=== PATIENT | female | born 1955 | race Caucasian/White ===

== ENCOUNTER 2020-08-15 17:16 | Emergency (ER) | payer BC ==
[2020-08-16 10:12] LABS: SARS-CoV-2 NAA Not Detected (Not Detected)
== END 2020-08-15 18:32 | disposition home or self-care (01) ==
LOC: JVIRT 17:16
DX: Z11.52 Encounter for screening for COVID-19 (principal)
CPT/HCPCS: C9803; G2251-GT; U0003; U0005

== ENCOUNTER 2020-11-03 08:33 | Day surgery (SDC) | payer BC ==
[2020-10-31 19:18] VITALS: BMI 28.7
[2020-11-03 10:56] VITALS: TEMP 98.2
[2020-11-03 11:18] VITALS: BP 136/68; PULSE 66
== END 2020-11-03 11:30 | disposition home or self-care (01) ==
LOC: FASU-ENDO 08:33
PROVIDERS: ATTEND Internal Medicine Gastroenterology
PROC: 0DB98ZX Excision of Duodenum, Via Natural or Artificial Opening Endoscopic, Diagnostic (ICD-10-PCS; 2020-11-03)
PROC: 0DB68ZX Excision of Stomach, Via Natural or Artificial Opening Endoscopic, Diagnostic (ICD-10-PCS; 2020-11-03)
PROC: 0DB48ZX Excision of Esophagogastric Junction, Via Natural or Artificial Opening Endoscopic, Diagnostic (ICD-10-PCS; 2020-11-03)
PROC: 0DBM8ZX Excision of Descending Colon, Via Natural or Artificial Opening Endoscopic, Diagnostic (ICD-10-PCS; principal; 2020-11-03 10:20)
DX: Z86.010 Personal history of colon polyps (principal); D12.4 Benign neoplasm of descending colon; Z80.0 Family history of malignant neoplasm of digestive organs; K29.50 Unspecified chronic gastritis without bleeding; R12 Heartburn
CPT/HCPCS: 82962; 88305-TC; 88342-TC